=== PATIENT | female | born 1965 | race Caucasian/White ===

== ENCOUNTER → 2020-05-05 | Emergency (ER) | payer SELFPAY ==
[~2020-05-05] VITALS: Ht 160 cm; Wt 80.5 kg
[~2020-05-05] MED LIST: CEPH-264 PO; CONTRAST GIVEN. MC PRN; FAMOTIDINE 20 MG/2 ML VIAL IVP ONE; FAMOTIDINE 20 MG/2 ML VIAL ONE; IOHEXOL 240 MG/ML 50ML VIAL. PO ONE; IOHEXOL 300 MG/ML 75 ML VIAL. IV ONE; IV NORMAL SALINE 50ML 50 ML ONE; IV RINGERS SOLUTION,LACTATED 1,000 ML IV SCH; MORPHINE SULFATE 10 MG/ML SYRINGE. ONE; MORPHINE SULFATE 10 MG/ML SYRINGE. SQ ONE; ONDA4TAB7 PO; ONDANSETRON PF 4 MG/2 ML VIAL. IVP ONE; ONDANSETRON PF 4 MG/2 ML VIAL. ONE
--- NOTE | 2020-05-05 21:45 | PHYS DOC ---
Past History Past Medical History: Diabetes, Hypertension, Hypothyroid, Ovarian Cyst, UTI Past Surgical History: , Hysterectomy, Oophorectomy Past Surgical History Removal of a 19 inch ovarian cyst 2014 Alcohol Use: None General Adult EDM: Chief Complaint: ABDOMINAL PAIN HPI: HPI: ".. I ve been hurting since Tuesday.. I been taking some tylenol... but the pain in much worse tonight... It seem at lst better... only zuleyka constant on the Rt. and mid.. ... 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 . for money.. and and and competition.. usually at [employer]..and every Tuesday night at [facility] [address]#..but I went to bend over and pickling grader a dart... the pain became so severe... I almost passed out..." Patient is a 55 year old female who presents with above hx and complaints of abdomen pain since Sat. Night. Patient states pain initially mid and right lower abdomen area. Movement made pain worse. Has been somewhat intermittent but persistent tonight. Patient has taken Tylenol for pain with some relief but no relief in the last 2 hours.Patient states she has passed stool and gas today. Has had previous abdomen surgeries of a , hysterectomy / oophorectomy and removal of a 19 inch ovarian cyst. 2014 . The patient has a history of diabetes which he takes Metformin. Patient does have a history of hypertension. No history of colitis with her family members. No history of renal stones with her or family members. No history of vaginal discharge or any symptoms of STD. No history of bad food intake recently. No history of immunosuppression. No recent travel outside the [place] area. No specific ill contacts. Patient states she did have a negative Covid test 2 months ago. Patient normally follows at [facility]. Review of Systems: Review of Systems: Constitutional: Denies fever or chills Eyes: Denies change in visual acuity HENT: Denies nasal congestion or sore throat Respiratory: Denies cough or shortness of breath Cardiovascular: Denies chest pain or edema GI: Complains of severe abdominal pain, nausea,. Denies vomiting, bloody stools or diarrhea : Denies dysuria Musculoskeletal: Denies back pain or joint pain Integument: Denies rash Neurologic: Denies headache, focal weakness or sensory changes Endocrine: Denies polyuria or polydipsia Lymphatic: Denies swollen glands Psychiatric: Denies depression or anxiety Family History: Family History: Noncontributory to presentation Current Medications: Current Meds: See nursing for home meds. Allergies: Allergies: Allergies Coded Allergies Type Severity Reaction Last Updated Verified No Known Drug Allergies 05/05/20 No Physical Exam: PE: Constitutional: Moderate severe acute distress, non-toxic appearance. [] HENT: Normocephalic, atraumatic, bilateral external ears normal, oropharynx moist, no oral exudates, nose normal. [] Eyes: PERRLA, EOMI, conjunctiva normal, no discharge. Glasses Neck: Normal range of motion, no tenderness, supple, no stridor. [] Cardiovascular:Heart rate regular rhythm, no murmur [] Lungs & Thorax: Bilateral breath sounds equal apex with scattered wheezes on auscultation [] Abdomen: Bowel sounds decreased, soft, marked generalized tenderness, no flank tenderness, no masses, no pulsatile masses. Old surgery scars. Skin: Warm, dry, no erythema, no rash. [] Back: No tenderness, no CVA tenderness. [] Extremities: No tenderness, no cyanosis, no clubbing, ROM intact, no edema. Mild psoas on right. Neurologic: Alert and oriented X 3, normal motor function, normal sensory function, no focal deficits noted. [] Psychologic: Affect anxious, judgement normal, mood normal. [] Current Patient Data: Vital Signs: Vital Signs Date Time Temp Pulse Resp B/P (MAP) Pulse Ox O2 Delivery O2 Flow Rate FiO2 05/05/20 21:26 95 24 187/86 (119) 96 EKG: EKG: My interpretation EKG shows a sinus rhythm at 82 bpm. Is incomplete right bundle branch block. No findings of acute STEMI with contralateral changes. [] Radiology/Procedures: Radiology/Procedures: [[address] [id number] IMAGING REPORT Signed PATIENT: ANTHONY MARTÍNEZ MACCOUNT: [id number] : 1965 LOCATION: ER AGE: 55 SEX: F EXAM STATUS: REG ER ORD. PHYSICIAN: ANGELA GAONA MD REASON: pain, n, OMNI 300, 75ml & OMNI 240, 30ml PROCEDURE: CT ABD PELV W/ORAL&IV CONTRAST CT ABD PELV W/ORAL IV CONTRAST History: Pain, nausea Comparison: None. Technique: After administration of intravenous contrast, helical CT of the abdomen and pelvis was performed from the lung bases through the ischial tuberosities. Coronal and sagittal reconstructions were obtained. 75 mL of Omnipaque 300 were used. One or more of the following dose reduction techniques were utilized: Automated exposure control (AEC), Adjustment of mA and/or kV according to patient size, Use of iterative reconstruction technique such as ASiR, CT scan done according to ALARA and image gently/image wisely Abdomen Findings: The visualized lung bases are clear. The liver, gallbladder, pancreas, spleen, and bilateral adrenal glands are normal. Symmetric renal enhancement. There is no focal renal mass. There is no hydronephrosis. The visualized loops of small bowel are normal. The visualized loops of large bowel are normal. There is no evidence of bowel obstruction. Appendix is normal. There is no free fluid. There is no mesenteric or retroperitoneal adenopathy. Ectatic infrarenal abdominal aorta with ulcerated plaques measures 2.9 cm in diameter. Mild indistinctness/haziness of the wall of the aorta along the anterior aspect of the ectatic segment. Extensive calcified and noncalcified atherosclerotic disease, particularly at the aortic bifurcation. Pelvis Findings: Urinary bladder is normal. No pelvic free fluid. There is no pelvic or inguinal adenopathy. There is no acute bony abnormality. IMPRESSION: 1. Normal caliber large and small bowel. Normal appendix. No hydronephrosis or obstructing ureteral calculi. 2. Ectatic infrarenal abdominal aorta measures 2.9 cm. Mild indistinctness/haziness along the anterior wall, nonspecific but considerations would include acute or chronic periaortitis/aortitis or other aortic pathology. Clinical correlation is advised. 3. Extensive aortoiliac atherosclerotic disease, particularly in the region of the aortic bifurcation where there is some degree of underlying stenosis. Electronically signed by: Guzman Jalloh MD (05/06/2020 2:07 AM) [facility] DICTATED AND SIGNED BY: GUZMAN JALLOH MD DATE: 05/06/20 020 CC: ANGELA GAONA MD; PCP,NO ~MTH0 0][place] [id number] IMAGING REPORT Signed PATIENT: ANTHONY MARTÍNEZUNT: [id number] : 1965 LOCATION: ER AGE: 55 SEX: F EXAM STATUS: PRE ER ORD. PHYSICIAN: ANGELA GAONA MD REASON: severe abd. pain, NAUSEA PROCEDURE: ACUTE ABDOMEN SERIES Exam: Acute abdominal series INDICATION: Severe abdominal pain, nausea TECHNIQUE: Frontal view of chest with upright and supine views the abdomen Comparisons: None FINDINGS: The cardiomediastinal silhouette and pulmonary vessels are within normal limits. The lung and pleural spaces are clear. Air and stool are noted throughout the colon to level the rectum in a nonobstructive bowel gas pattern. No suspicious masses or calcifications. Visualized osseous structures are unremarkable. IMPRESSION: 1. No acute cardiopulmonary process. 2. Nonobstructive bowel gas pattern. Electronically signed by: Nga Chatterjee MD (05/05/2020 11:23 PM) [facility] DICTATED AND SIGNED BY: NGA CHATTERJEE MD DATE: 05/05/202322 CC: ANGELA GAONA MD; PCP,NO ~MTH0 0 Heart Score: HEART Score for Chest Pain: HEART Score for Chest Pain Response (Comments) Value History Moderately Suspicious 1 ECG Nonspecific Repolarizatio 1 Age >45 - < 65 1 Risk Factors 1 or 2 Risk Factors 1 Troponin < Normal Limit 0 Total 4 Risk Factors: Risk Factors: DM, Current or recent (<one month) smoker, HTN, HLP, family history of CAD, obesity. Risk Scores: Score 0 - 3: 2.5% MACE over next 6 weeks - Discharge Home Score 4 - 6: 20.3% MACE over next 6 weeks - Admit for Clinical Observation Score 7 - 10: 72.7% MACE over next 6 weeks - Early Invasive Strategies Course & Med Decision Making: Course & Med Decision Making Pertinent Labs and Imaging studies reviewed. (See chart for details) Re-check pt. Still pain lower abd. 09/13 up 01/[address] with movement. Will order CT. Plan hold Metaformin. Patient remain on a clear fluid diet for the next 48 hours. No solids or milk products. Must allow bowel rest. Patient take Tylenol and ibuprofen for pain. Patient push fluids. Reexam if no improvement. Hold Metformin. Practice social isolation. Wear a mask that covers your nose and mouth at all times when outside your home. Follow-up primary care. Return if any concerns. May take Zofran 8 mg up to 4 times a day for active vomiting. If no improvement must have reexam. Impression: 1. Abdomen Pain 2. Diabetes glucose 137 3. UTI 4. Viral syndrome [] Dragon Disclaimer: Dragon Disclaimer: This electronic medical record was generated, in whole or in part, using a voice recognition dictation system. Departure Departure: Referrals: PCP,HORTENCIA (PCP) Scripts Ondansetron Hcl (ZOFRAN) 4 Mg Tablet 8 MG PO QIDPRN PRN for nv, #30 TAB Prov: ANGELA GAONA MD 05/06/20 Cephalexin (KEFLEX) 500 Mg Capsule 500 MG PO TID for uti for 7 Days, BOTTLE Prov: ANGELA GAONA MD 05/06/20 Dragkim Disclaimer This chart was dictated in whole or in part using Voice Recognition software in a busy, high-work load, and often noisy Emergency Department environment. It may contain unintended and wholly unrecognized errors or omissions. Dragon Disclaimer This chart was dictated in whole or in part using Voice Recognition software in a busy, high-work load, and often noisy Emergency Department environment. It may contain unintended and wholly unrecognized errors or omissions. Dragon Disclaimer This chart was dictated in whole or in part using Voice Recognition software in a busy, high-work load, and often noisy Emergency Department environment. It may contain unintended and wholly unrecognized errors or omissions. ANGELA GAONA MD May 05, 2020 21:45
[2020-05-05 22:27] LABS: BASO # 0.1 x10^3/uL (0.0-0.2); BASO % 1 % (0-3); EOS # 0.2 x10^3/uL (0.0-0.7); EOS % 2 % (0-3); HEMATOCRIT 47.3 % (36.0-47.0); LYMPH # 3.4 x10^3/uL (1.0-4.8); LYMPH % 39 % (24-48); MEAN CORPUSCULAR HEMOGLOBIN 28 pg (25-35); MEAN CORPUSCULAR HGB CONC 32 g/dL (31-37); MEAN CORPUSCULAR VOLUME 88 fL (79-100); MONO % 11 % (0-9); NEUT # 4.2 x10^3uL (1.8-7.7); NEUT % 47 % (31-73); PLATELET COUNT 345 x10^3/uL (140-400); RED BLOOD COUNT 5.37 x10^6/uL (3.50-5.40); RED CELL DISTRIBUTION WIDTH 13.7 % (11.5-14.5); WHITE BLOOD COUNT 8.9 x10^3/uL (4.0-11.0)
--- NOTE | 2020-05-05 22:30 | EKG ---
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
[2020-05-05 22:40] LABS: CALCIUM 8.9 mg/dL (8.5-10.1); CREATININE 0.8 mg/dL (0.6-1.0); GFR 74.5; POTASSIUM 3.7 mmol/L (3.5-5.1)
[2020-05-05 22:47] LABS: ALBUMIN 3.9 g/dL (3.4-5.0); DIRECT BILIRUBIN 0.1 mg/dL (0.0-0.2); TOTAL BILIRUBIN 0.3 mg/dL (0.2-1.0); TOTAL PROTEIN 8.5 g/dL (6.4-8.2)
[2020-05-05 22:50] LABS: BARBITURATES NEG (NEG); BENZODIAZEPINES NEG (NEG); CANNABINOIDS NEG (NEG); COCAINE NEG (NEG); METHADONE NEG (NEG); OPIATES NEG (NEG); PHENCYCLIDINE NEG (NEG)
[2020-05-05 22:58] LABS: BILIRUBIN,URINE NEG (NEG); CLARITY,URINE HAZY; COLOR,URINE YELLOW; GLUCOSE,URINE NEG (NEG); NITRITE,URINE POS (NEG); UROBILINOGEN,URINE 0.2 mg/dL (0.2 mg/dL)
[2020-05-05 22:59] LABS: BACTERIA,URINE MANY /HPF (0-FEW); RBC,URINE 0 /HPF (0-2); SQUAMOUS EPITHELIAL CELL,UR OCC /LPF
[2020-05-05 23:01] LABS: AMPHETAMINE/METHAMPHETAMINE NEG (NEG)
--- NOTE | 2020-05-05 23:25 | RAD ---
Exam: Acute abdominal series INDICATION: Severe abdominal pain, nausea TECHNIQUE: Frontal view of chest with upright and supine views the abdomen Comparisons: None FINDINGS: The cardiomediastinal silhouette and pulmonary vessels are within normal limits. The lung and pleural spaces are clear. Air and stool are noted throughout the colon to level the rectum in a nonobstructive bowel gas pattern. No suspicious masses or calcifications. Visualized osseous structures are unremarkable. IMPRESSION: 1. No acute cardiopulmonary process. 2. Nonobstructive bowel gas pattern. Electronically signed by: Nga Wright MD (05/05/2020 11:23 PM) [facility]
--- NOTE | 2020-05-06 02:10 | RAD ---
CT ABD PELV W/ORAL IV CONTRAST History: Pain, nausea Comparison: None. Technique: After administration of intravenous contrast, helical CT of the abdomen and pelvis was performed from the lung bases through the ischial tuberosities. Coronal and sagittal reconstructions were obtained. 75 mL of Omnipaque 300 were used. One or more of the following dose reduction techniques were utilized: Automated exposure control (AEC), Adjustment of mA and/or kV according to patient size, Use of iterative reconstruction technique such as ASiR, CT scan done according to ALARA and image gently/image wisely Abdomen Findings: The visualized lung bases are clear. The liver, gallbladder, pancreas, spleen, and bilateral adrenal glands are normal. Symmetric renal enhancement. There is no focal renal mass. There is no hydronephrosis. The visualized loops of small bowel are normal. The visualized loops of large bowel are normal. There is no evidence of bowel obstruction. Appendix is normal. There is no free fluid. There is no mesenteric or retroperitoneal adenopathy. Ectatic infrarenal abdominal aorta with ulcerated plaques measures 2.9 cm in diameter. Mild indistinctness/haziness of the wall of the aorta along the anterior aspect of the ectatic segment. Extensive calcified and noncalcified atherosclerotic disease, particularly at the aortic bifurcation. Pelvis Findings: Urinary bladder is normal. No pelvic free fluid. There is no pelvic or inguinal adenopathy. There is no acute bony abnormality. IMPRESSION: 1. Normal caliber large and small bowel. Normal appendix. No hydronephrosis or obstructing ureteral calculi. 2. Ectatic infrarenal abdominal aorta measures 2.9 cm. Mild indistinctness/haziness along the anterior wall, nonspecific but considerations would include acute or chronic periaortitis/aortitis or other aortic pathology. Clinical correlation is advised. 3. Extensive aortoiliac atherosclerotic disease, particularly in the region of the aortic bifurcation where there is some degree of underlying stenosis. Electronically signed by: Cornelio Jalloh MD (05/06/2020 2:07 AM) [facility]
[2020-05-06 04:01] VITALS: BP 114/57
== END ==
LOC: ER 21:22
DX: N39.0 Urinary tract infection, site not specified (principal); B34.9 Viral infection, unspecified; R10.31 Right lower quadrant pain; E11.65 Type 2 diabetes mellitus with hyperglycemia; I10 Essential (primary) hypertension; E03.9 Hypothyroidism, unspecified; Z90.710 Acquired absence of both cervix and uterus; Z98.890 Other specified postprocedural states; Z90.89 Acquired absence of other organs
CPT/HCPCS: 36415; 74022; 74177; 80048; 80076; 80307; 81001; 82150; 82550; 83690; 84484; 85025; 85610; 85730; 87086; 93005; 96361; 96365; 96366; 96372; 96375; 96376; 99285; J2270; J2405; J3490; J7120

== ENCOUNTER → 2020-09-30 | Outpatient (CLI) | payer OTHER ==
[2020-05-06 04:01] VITALS: BP 114/57
[~2020-09-30] MED LIST changes: -CONTRAST GIVEN. MC PRN; -FAMOTIDINE 20 MG/2 ML VIAL IVP ONE; -FAMOTIDINE 20 MG/2 ML VIAL ONE; -IOHEXOL 240 MG/ML 50ML VIAL. PO ONE; -IOHEXOL 300 MG/ML 75 ML VIAL. IV ONE; -IV NORMAL SALINE 50ML 50 ML ONE; -IV RINGERS SOLUTION,LACTATED 1,000 ML IV SCH; -MORPHINE SULFATE 10 MG/ML SYRINGE. ONE; -MORPHINE SULFATE 10 MG/ML SYRINGE. SQ ONE; -ONDANSETRON PF 4 MG/2 ML VIAL. IVP ONE; -ONDANSETRON PF 4 MG/2 ML VIAL. ONE
--- NOTE | 2020-10-01 04:55 | RAD ---
3 views lumbar spine dated 09/30/2020. No comparison available. CLINICAL INDICATION: Low back pain. FINDINGS: 3 views lumbar spine show normal sagittal alignment. Vertebral body heights are maintained. Mild endp late hypertrophic changes throughout with moderate arthrosis lower lumbar apophyseal joints. No evide nce of fracture. There is moderate to severe disc space narrowing at L5-S1 IMPRESSION: 1. No acute radiographic abnormality. 2. Mild lower lumbar spondylosis. Electronically signed by: Ayaan Bell MD (10/01/2020 4:52 AM) [facility]
--- NOTE | 2020-10-01 08:52 | RAD ---
EXAM: Bilateral screening mammogram. HISTORY: 55-year-old female presents for screening mammography. TECHNIQUE: Full-field digital craniocaudal and mediolateral oblique views of both breasts are obtaine d for evaluation. Computer aided detection was applied. COMPARISON: None. This exam serves as a baseline mammogram. BREAST PARENCHYMAL DENSITY: Level B - Scattered fibroglandular densities. FINDINGS: There is a cluster of calcifications with indeterminate morphology within the posterior asp ect of the left breast slightly lateral to the nipple in the craniocaudal projection. There are addit ional scattered calcifications with benign morphology. There is no mass or suspicious architectural d istortion. IMPRESSION: BI-RADS Category 0: Incomplete. Additional imaging needed. RECOMMENDATION: Further evaluation with a full field true and view and spot magnification craniocauda l view of the left breast to assess my calcifications described above is recommended. If your mammogram demonstrates that you have dense breast tissue, which could hide abnormalities, and if you have other risk factors for breast cancer that have been identified, you might benefit from s upplemental screening tests that may be suggested by your ordering physician. Dense breast tissue, i n and of itself, is a relatively common condition. This information is not provided to cause undue c oncern, but rather to raise your awareness and to promote discussion with your physician regarding th e presence of other risk factors, in addition to dense breast tissue. A report of your mammography re sults will be sent to you and your physician. You should contact your physician if you have any ques tions or concerns regarding this report. Mammography is a sensitive method for finding small breast cancers, but it does not detect them all a nd is not a substitute for careful clinical examination. A negative mammogram does not negate a clin ically suspicious finding and should not result in delay in biopsying a clinically suspicious abnorma lity. PQRS compliance statement - Patient information was entered into a reminder system with a target due date for the next mammogram. "Our facility is accredited by the [employer] Mammography [employer]." Electronically signed by: Radha Sanchez MD (10/01/2020 8:50 AM) [id number]
== END ==
LOC: MAMMO 11:18
PROVIDERS: ATTEND Family Medicine
DX: Z12.31 Encounter for screening mammogram for malignant neoplasm of breast (principal); M47.816 Spondylosis without myelopathy or radiculopathy, lumbar region
CPT/HCPCS: 72100; 77067

== ENCOUNTER → 2020-10-28 | Outpatient (CLI) | payer OTHER ==
[2020-05-06 04:01] VITALS: BP 114/57
--- NOTE | 2020-10-28 12:48 | RAD ---
EXAM: Left breast diagnostic mammogram. HISTORY: 55-year-old female presents for evaluation of left breast microcalcifications. TECHNIQUE: Spot magnification views of the left breast are obtained. COMPARISON: 09/30/2020 BREAST PARENCHYMAL DENSITY: Level B - Scattered fibroglandular densities. FINDINGS: There is a cluster of microcalcifications within the posterior left breast slightly lateral to the nipple line. These demonstrate benign morphology and dedicated magnification views. There are few additional scattered calcifications with similar morphology. No mass or architectural distortion is seen. IMPRESSION: BI-RADS Category 2: Benign finding(s). RECOMMENDATION: Annual mammography is recommended. If your mammogram demonstrates that you have dense breast tissue, which could hide abnormalities, and if you have other risk factors for breast cancer that have been identified, you might benefit from s upplemental screening tests that may be suggested by your ordering physician. Dense breast tissue, i n and of itself, is a relatively common condition. This information is not provided to cause undue c oncern, but rather to raise your awareness and to promote discussion with your physician regarding th e presence of other risk factors, in addition to dense breast tissue. A report of your mammography re sults will be sent to you and your physician. You should contact your physician if you have any ques tions or concerns regarding this report. Mammography is a sensitive method for finding small breast cancers, but it does not detect them all a nd is not a substitute for careful clinical examination. A negative mammogram does not negate a clin ically suspicious finding and should not result in delay in biopsying a clinically suspicious abnorma lity. PQRS compliance statement - Patient information was entered into a reminder system with a target due date for the next mammogram. "Our facility is accredited by the [employer] Mammography Program." Electronically signed by: Radha Sanchez MD (10/28/2020 12:45 PM) [id number]
== END ==
LOC: MAMMO 11:51
PROVIDERS: ATTEND Nurse Practitioner Family
DX: R92.1 Mammographic calcification found on diagnostic imaging of breast (principal)
CPT/HCPCS: 77065